=== PATIENT | male | born 1950 | race Caucasian/White ===

== ENCOUNTER 2017-08-20 20:03 | Emergency (ER) | payer MEDICAID ==
[~2017-08-20] VITALS: Ht 177.8 cm; Wt 65.9 kg
[~2017-08-20 20:03] MED LIST: ASPI-611 PO; CLOP75TA35 PO; LISI-600 PO; METO25TA6 PO; PRAV10TA39 PO
[2017-08-20 20:22] VITALS: BP 147/73
== END 2017-08-20 22:06 | disposition home or self-care (01) ==
LOC: ER 20:04
DX: S90.32XA Contusion of left foot, initial encounter (principal); I25.10 Atherosclerotic heart disease of native coronary artery without angina pectoris; E78.00 Pure hypercholesterolemia, unspecified; I10 Essential (primary) hypertension; F17.200 Nicotine dependence, unspecified, uncomplicated; Z95.5 Presence of coronary angioplasty implant and graft; Z79.82 Long term (current) use of aspirin; Z79.899 Other long term (current) drug therapy; W19.XXXA Unspecified fall, initial encounter; Y93.39 Activity, other involving climbing, rappelling and jumping off; Y92.89 Other specified places as the place of occurrence of the external cause; Y99.8 Other external cause status
CPT/HCPCS: 73630; 99284

== ENCOUNTER 2020-11-27 20:07 | Emergency (ER) | payer MEDICAID, OTHER ==
[~2020-11-27] VITALS: Ht 177.8 cm; Wt 71.9 kg
[~2020-11-27 20:07] MED LIST changes: +CLOP75TA34 PO; -CLOP75TA35 PO; -LISI-600 PO; +LISI20TA28 PO; +LOP25T PO; -METO25TA6 PO
--- NOTE | 2020-11-27 21:11 | NUR ---
PT SUPINE W/ C COLLAR IN PLACE. SPOUSE AT BEDSIDE
--- NOTE | 2020-11-27 21:45 | NUR ---
PATIENT AMBULATORY TO AND FROM BATHROOM WITH STEADY GAIT- DENIES ANY SYMPTOMS, EVEN AND UNLABORED RESPIRATIONS. CLEARED C-COLLAR BY KENNETH ED PROVIDER.
[2020-11-27] MEDS ORDERED: METH-797 PO (22:16)
[2020-11-27 22:56] VITALS: BP 142/74
== END 2020-11-27 22:57 | disposition home or self-care (01) ==
LOC: ER 20:07
DX: S16.1XXA Strain of muscle, fascia and tendon at neck level, initial encounter (principal); S29.019A Strain of muscle and tendon of unspecified wall of thorax, initial encounter; M54.2 Cervicalgia; I25.10 Atherosclerotic heart disease of native coronary artery without angina pectoris; E78.00 Pure hypercholesterolemia, unspecified; I10 Essential (primary) hypertension; Z98.890 Other specified postprocedural states; Z72.89 Other problems related to lifestyle; Z79.82 Long term (current) use of aspirin; Z79.899 Other long term (current) drug therapy; V87.7XXA Person injured in collision between other specified motor vehicles (traffic), initial encounter; Y93.89 Activity, other specified; Y92.89 Other specified places as the place of occurrence of the external cause; Y99.8 Other external cause status
CPT/HCPCS: 72040; 99283